=== PATIENT | female | born 1950 | race Two or more races ===

== ENCOUNTER → 2024-06-23 | Outpatient (CLI) | payer MEDICARE, MEDICAID, SELFPAY ==
[2024-06-23 09:56] LABS: Basophils # (Auto) 0.1 Thou/mm3 (0.0-0.2); Basophils % (Auto) 1 % (0-2.5); Eosinophils # (Auto) 0.2 Thou/mm3 (0.0-0.5); Eosinophils % (Auto) 2 % (0-10); Hematocrit 34.4 % (36.0-46.0); Hemoglobin 11.5 g/dL (12.0-16.0); Immature Granulocytes % (Auto) 5 % (0-0); Immature Granulocytes Auto 0.47 Thou/mm3 (0.00-0.00); Lymphocytes # (Auto) 0.6 Thou/mm3 (1.0-4.8); Lymphocytes % (Auto) 7 % (10-50); Mean Corpuscular HGB Conc 33.4 g/dl (31.0-37.0); Mean Corpuscular Hemoglobin 29.4 pg (25.0-35.0); Mean Corpuscular Volume 88 fL (80-100); Monocytes # (Auto) 0.8 Thou/mm3 (0.0-0.8); Monocytes % (Auto) 9 % (0-12); Neutrophils # (Auto) 7.1 Thou/mm3 (1.8-7.7); Neutrophils % (Auto) 77 % (37-80); Nucleated Red Blood Cell % 0 /100 WBC (0); Platelet Count 365 Thou/mm3 (140-440); RDW Standard Deviation 45.8 fL (36.4-46.3); Red Blood Count 3.91 Miln/mm3 (4.00-5.20); White Blood Count 9.2 Thou/mm3 (3.6-11.0)
[2024-06-23 10:23] LABS: Alanine Aminotransferase 19 U/L (10-49); Albumin, Serum 4.4 gm/dL (3.4-4.8); Albumin/Globulin Ratio 1.5 (1.2-2.2); Alkaline Phosphatase 85 U/L (46-116); Anion Gap 4 (7-16); Aspartate Amino Transferase 24 U/L (0-34); BUN/Creatinine Ratio 23 Ratio (12-20); Bilirubin,Total 0.3 mg/dL (0.3-1.2); Blood Urea Nitrogen 21 mg/dL (9-23); Calcium 9.1 mg/dL (8.3-10.6); Calcium (Corrected) 9.1 mg/dL (8.5-10.1); Carbon Dioxide 28.2 mMol/L (20.0-31.0); Chloride 100 mMol/L (98-107); Creatinine (Component) 0.9 mg/dL (0.6-1.3); Globulin 2.9 gm/dL (2.3-3.5); Glucose 104 mg/dL (74-106); Osmolality,Calculated 267 (275-295); Sodium 132 mMol/L (136-145); Total Protein 7.3 gm/dL (5.7-8.2); eGFR > 60 See Note
[2024-06-23 10:27] LABS: Folate > 24.00 ng/mL (>5.38); Vitamin B12 796 pg/mL (211-911)
[2024-06-23 10:48] LABS: Ferritin 144 ng/mL (7.3-270.7); Total Iron Binding Capacity 286 mcg/dL (250-425)
[2024-06-23 10:58] LABS: Iron 23 mcg/dL (50-170); Percent Iron Saturation 8 % (20-55); Unsaturated Iron Binding 263 (225-295)
== END | disposition home or self-care (01) ==
LOC: COPL 09:25 → SCTO 09:27
PROVIDERS: PCP Family Medicine; Referring Provider Nurse Practitioner Family; Visit Provider Nurse Practitioner Family
DX: C85.81 Other specified types of non-Hodgkin lymphoma, lymph nodes of head, face, and neck (principal)
CPT/HCPCS: 36415; 80053; 82607; 82728; 82746; 83540; 83550; 85025

== ENCOUNTER 2024-06-24 09:16 | Outpatient (RCR) | payer MEDICARE, MEDICAID, SELFPAY | END 2024-07-11 23:59 | disposition home or self-care (01) | LOC: SCTC 09:16 | PROVIDERS: PCP Family Medicine; Referring Provider Nurse Practitioner Family; Visit Provider Nurse Practitioner Family | DX: Z08 Encounter for follow-up examination after completed treatment for malignant neoplasm (principal); Z85.72 Personal history of non-Hodgkin lymphomas; Z86.2 Personal history of diseases of the blood and blood-forming organs and certain disorders involving the immune mechanism; I10 Essential (primary) hypertension; E87.1 Hypo-osmolality and hyponatremia | CPT/HCPCS: 99212; G0463 ==

== ENCOUNTER → 2024-08-21 | Outpatient (CLI) | payer MEDICARE, MEDICAID, SELFPAY ==
[2024-08-21 11:18] LABS: Basophils % (Auto) 1 % (0-2.5); Eosinophils # (Auto) 0.1 Thou/mm3 (0.0-0.5); Eosinophils % (Auto) 1 % (0-10); Hematocrit 34.2 % (36.0-46.0); Hemoglobin 11.2 g/dL (12.0-16.0); Immature Granulocytes % (Auto) 3 % (0-0); Immature Granulocytes Auto 0.17 Thou/mm3 (0.00-0.00); Immature Reticulocyte Fraction 13.6 % (3.0-15.9); Lymphocytes # (Auto) 0.5 Thou/mm3 (1.0-4.8); Lymphocytes % (Auto) 10 % (10-50); Mean Corpuscular HGB Conc 32.7 g/dl (31.0-37.0); Mean Corpuscular Hemoglobin 29.6 pg (25.0-35.0); Mean Corpuscular Volume 90 fL (80-100); Monocytes # (Auto) 0.6 Thou/mm3 (0.0-0.8); Monocytes % (Auto) 12 % (0-12); Neutrophils # (Auto) 3.9 Thou/mm3 (1.8-7.7); Neutrophils % (Auto) 73 % (37-80); Nucleated Red Blood Cell % 0 /100 WBC (0); Platelet Count 343 Thou/mm3 (140-440); RDW Standard Deviation 49.2 fL (36.4-46.3); Red Blood Count 3.79 Miln/mm3 (4.00-5.20); Reticulocyte % (Auto) 1.5 % (0.5-1.5); Reticulocyte Absolute Auto 57.6 Biln/L (25.0-75.0); Reticulocyte Hgb Content 34.2 pg (28.0-35.0); White Blood Count 5.4 Thou/mm3 (3.6-11.0)
[2024-08-21 11:34] LABS: Alanine Aminotransferase 15 U/L (10-49); Albumin, Serum 4.2 gm/dL (3.4-4.8); Albumin/Globulin Ratio 1.4 (1.2-2.2); Alkaline Phosphatase 78 U/L (46-116); Anion Gap 6 (7-16); Aspartate Amino Transferase 12 U/L (0-34); BUN/Creatinine Ratio 22 Ratio (12-20); Bilirubin,Total 0.3 mg/dL (0.3-1.2); Blood Urea Nitrogen 22 mg/dL (9-23); Calcium 9.2 mg/dL (8.3-10.6); Calcium (Corrected) 9.2 mg/dL (8.5-10.1); Carbon Dioxide 28.8 mMol/L (20.0-31.0); Chloride 101 mMol/L (98-107); Glucose 93 mg/dL (74-106); Osmolality,Calculated 275 (275-295); Potassium 4.3 mMol/L (3.4-5.1); Sodium 136 mMol/L (136-145); Total Protein 7.2 gm/dL (5.7-8.2); eGFR 58 See Note
[2024-08-21 11:35] LABS: Folate 21.54 ng/mL (>5.38); Vitamin B12 436 pg/mL (211-911)
[2024-08-21 12:01] LABS: Ferritin 114 ng/mL (7.3-270.7); Total Iron Binding Capacity 302 mcg/dL (250-425)
[2024-08-21 22:13] LABS: Iron 51 mcg/dL (50-170); Percent Iron Saturation 16 % (20-55); Unsaturated Iron Binding 251 (225-295)
== END | disposition home or self-care (01) ==
LOC: SCTO 10:15
PROVIDERS: PCP Family Medicine; Referring Provider Nurse Practitioner Family; Visit Provider Nurse Practitioner Family
DX: C85.81 Other specified types of non-Hodgkin lymphoma, lymph nodes of head, face, and neck (principal)
CPT/HCPCS: 36415; 80053; 82607; 82728; 82746; 83540; 83550; 85025; 85046

== ENCOUNTER 2024-08-24 10:50 | Outpatient (RCR) | payer MEDICARE, MEDICAID, SELFPAY ==
--- NOTE | 2024-08-24 16:09 | CTCFLWUP_ITS ---
Patient: YASMANY MERCADO : 1950 Page 2 of 2 FOLLOW UP NOTE DATE OF SERVICE: 08/24/2024 NAME: YASMANY MERCADO ACCOUNT: [id number] : 1950 AGE: 74 INTERVAL HISTORY: Patient is doing well. There is no new complaints. Patient do not take vitamin D or iron supplement . 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 Mercado is here at [facility]. She is clinically doing well. Ms. Mercado denies any complaints today. Has good appetite and good energy l evels. Labs on 06/23/2024 show hemoglobin 11.5, MCV 88, iron saturation 8%, ferritin 144. Patient r estarted oral ferrous sulfate one week ago, tolerating it well. Patient denies craving ice paint dirt . Patient denies nilsa blood in stool, denies blood per rectum, denies black stools. Patient reports good energy levels and appetite. Denies any cough, chest pain, abdominal pain or leg cramps, weight loss. HISTORY: Amaya Mercado is a 74-year-old Japanese-speaking female with history of left arteaga tid mass excision on 10/21/2014. Pathology specimen showed extranodal marginal zone lymphoma. 12/06/2014?12/31/2014: Patient received 3600 cGy radiation to left face/neck. 11/20/2019: Hemoglobin 10.7, MCV 87, WBC 6.4, platelets 379,000. Iron saturation 12%. 11/24/2019: Ferrous sulfate 325 mg p.o. twice daily with small glass of orange juice started. 01/08/2020: Hemoglobin 10.9, MCV 89, iron saturation 14%. Ferritin 78. 04/05/2020: Hemoglobin 11.7, MCV 87, WBC 3.8, ANC 2.8, platelets 325,000. Iron saturation 18%, ferrit in 196. B12 and folate are in the normal range. 10/03/2020: Hemoglobin 12.1, MCV 91, WBC 4.8, platelets 307,000, iron saturation 15%, ferritin 149. 01/20/2021: Colonoscopy 03/10/2023: EGD: Acute gastritis without bleeding 11/25/2023: Hemoglobin 11.8, MCV 90, WBC 6.0, platelets 314,000, iron saturation 19%, ferritin 100 06/23/2024: Hemoglobin 11.5, MCV 88, WBC 9.2, platelets 365,000, iron saturation 8%, ferritin 144 OTHER MEDICAL HISTORY/CONDITIONS: FAMILY HISTORY: SOCIAL HISTORY: GRINDER SET UP OPERATOR UNIVERSAL HISTORY: MEDICATIONS: 1. lisinopril - 40 mg 1 tab Daily Medications Last Reconciled by Ary Salas MA on 08/24/2024 ALLERGIES: No Known Drug Allergies REVIEW OF SYSTEMS: A complete 14-point review of systems was performed and is negative except as noted in interval histo ry. PHYSICAL EXAMINATION: VITAL SIGNS: PAIN: 0 - No pain ECOG Performance Status: 0 - Asymptomatic and fully active GENERAL APPEARANCE: Appears well, in no apparent distress, appropriately interactive. HEENT: Normocephalic, no temporal wasting, normal conjunctiva, no scleral icterus, normal hearing, li ps without lesions, neck normal range of motion. CARDIOVASCULAR: Not assessed. PULMONARY: Normal respiratory effort, no respiratory distress or use of accessory muscles, speaking i n full sentences, no tachypnea. EXTREMITIES: No pedal edema or cyanosis. SKIN: Normal skin appearance. NEUROLOGIC: Alert and oriented x4. PSHYCHIATRIC: Appropriate affect, mood normal, behavior normal, intact thought and speech. LABORATORY DATA: I have personally reviewed and interpreted each of the patient?s relevant lab tests, abnormal finding s are below: Date 08/21/24 ??WHITE?BLOOD?COUNT?(Thou/mm3) 5.4 ??RED?BLOOD?COUNT?(Miln/mm3) 3.79?L ??HEMOGLOBIN?(gm/dl) 11.2?L ??HEMATOCRIT?(%) 34.2?L ??PLATELET?COUNT?(Thou/mm3) 343 ??NEUTROPHILS?%,?AUTO?(%) 73 ??LYMPH?%,?AUTO?(%) 10 ??NEUTROPHILS,?AUTO?(Thou/mm3) 3.9 ASSESSMENT/PLAN: #1 marginal zone lymphoma stage I AE status post excision followed by radiation No clinical evidence of recurrence #2 iron deficiency anemia Transferrin percent is mildly low Advised to take oral ferrous sulfate 1 tablet every other day #3 vitamin D supplement Advised to take vitamin D3 every day with fatty food CBC CMP ferritin iron studies B12 folic acid RETURN TO CLINIC: 4 months BILLING AND COMPLIANCE: I reviewed external records from providers outside my specialty as summarized above. I spent a total of 50 minutes on this patient?s care on the day of their visit excluding time spent related to any bi lled procedures. This time includes time spent with the patient as well as time spent documenting in the medical record, reviewing patients records and tests, obtaining history, placing orders, communi cating with other healthcare professionals, counseling the patient, family or caregiver, and/or care coordination for the diagnoses above. Electronically Signed by: Tavo Varghese MD T: 4:07 PM CC: Chuckie?Eddi,? PCP: Nico Marin Referring: Nico Marin This document was completed utilizing speech recognition software. Grammatical errors, random word in sertions, pronoun errors, and incomplete sentences are an occasional consequence of this system due t o software limitations, ambient noise, and hardware issues. Any formal questions or concerns about th e content, text or information contained within the body of this dictation should be directly address ed to the provider for clarification.
== END 2024-09-11 23:59 | disposition home or self-care (01) ==
LOC: SCTC 10:50
PROVIDERS: PCP Family Medicine; Referring Provider Family Medicine; Visit Provider Nurse Practitioner Family
DX: Z08 Encounter for follow-up examination after completed treatment for malignant neoplasm (principal); Z85.72 Personal history of non-Hodgkin lymphomas; D50.9 Iron deficiency anemia, unspecified
CPT/HCPCS: 99213; G0463

== ENCOUNTER → 2024-12-18 | Outpatient (CLI) | payer MEDICARE, MEDICAID, SELFPAY ==
[2024-12-18 09:49] LABS: Basophils % (Auto) 0 % (0-2.5); Eosinophils # (Auto) 0.3 Thou/mm3 (0.0-0.5); Eosinophils % (Auto) 6 % (0-10); Hematocrit 32.8 % (36.0-46.0); Hemoglobin 11.1 g/dL (12.0-16.0); Immature Granulocytes % (Auto) 1 % (0-0); Immature Granulocytes Auto 0.06 Thou/mm3 (0.00-0.00); Lymphocytes # (Auto) 0.4 Thou/mm3 (1.0-4.8); Lymphocytes % (Auto) 9 % (10-50); Mean Corpuscular HGB Conc 33.8 g/dl (31.0-37.0); Mean Corpuscular Hemoglobin 30.1 pg (25.0-35.0); Mean Corpuscular Volume 89 fL (80-100); Monocytes # (Auto) 0.5 Thou/mm3 (0.0-0.8); Monocytes % (Auto) 12 % (0-12); Neutrophils # (Auto) 3.3 Thou/mm3 (1.8-7.7); Neutrophils % (Auto) 72 % (37-80); Nucleated Red Blood Cell % 0 /100 WBC (0); Platelet Count 313 Thou/mm3 (140-440); RDW Standard Deviation 45.2 fL (36.4-46.3); Red Blood Count 3.69 Miln/mm3 (4.00-5.20); White Blood Count 4.6 Thou/mm3 (3.6-11.0)
[2024-12-18 10:08] LABS: Folate 16.92 ng/mL (>5.38)
[2024-12-18 10:14] LABS: Alanine Aminotransferase 15 U/L (10-49); Albumin, Serum 4.2 gm/dL (3.4-4.8); Albumin/Globulin Ratio 1.4 (1.2-2.2); Alkaline Phosphatase 76 U/L (46-116); Anion Gap 6 (7-16); Aspartate Amino Transferase 25 U/L (0-34); BUN/Creatinine Ratio 18 Ratio (12-20); Bilirubin,Total 0.3 mg/dL (0.3-1.2); Blood Urea Nitrogen 18 mg/dL (9-23); Calcium 8.8 mg/dL (8.3-10.6); Calcium (Corrected) 8.8 mg/dL (8.5-10.1); Chloride 105 mMol/L (98-107); Globulin 3.1 gm/dL (2.3-3.5); Glucose 102 mg/dL (74-106); Osmolality,Calculated 277 (275-295); Potassium 4.1 mMol/L (3.4-5.1); Sodium 138 mMol/L (136-145); Total Protein 7.3 gm/dL (5.7-8.2); eGFR 58 See Note
[2024-12-18 10:18] LABS: Ferritin 84 ng/mL (7.3-270.7); Iron 44 mcg/dL (50-170); Percent Iron Saturation 15 % (20-55); Total Iron Binding Capacity 283 mcg/dL (250-425); Unsaturated Iron Binding 239 (225-295)
== END | disposition home or self-care (01) ==
LOC: SCTO 08:50
PROVIDERS: PCP Family Medicine; Referring Provider Internal Medicine Hematology & Oncology; Visit Provider Internal Medicine Hematology & Oncology
DX: C85.81 Other specified types of non-Hodgkin lymphoma, lymph nodes of head, face, and neck (principal)
CPT/HCPCS: 36415; 80053; 82728; 82746; 83540; 83550; 85025

== ENCOUNTER 2024-12-22 10:51 | Outpatient (RCR) | payer MEDICARE, MEDICAID, SELFPAY ==
--- NOTE | 2024-12-22 12:01 | CTCFLWUP_ITS ---
Patient: YASMANY MERCADO : 1950 Page 2 of 2 FOLLOW UP NOTE DATE OF SERVICE: 12/22/2024 NAME: YASMANY MERCADO ACCOUNT: [id number] : 1950 AGE: 74 INTERVAL HISTORY: Subjective: Chief Complaint Follow-up for marginal zone lymphoma History of Present Illness Ms. Jess Hernandez is a female patient with a history of marginal zone lymphoma, last seen in August. She presents for a follow-up visit with no new complaints. The patient reports no changes in her overall health status since her last visit. She denies experiencing any weight loss, appetite changes, night sweats, or swollen glands, which are potential symptoms of lymphoma recurrence. The patient has not been adherent to the recommended treatment plan, as she has not been taking the advised vitamin D supplements. Regarding her iron supplementation, the patient has also not been compliant with the recommendation to take iron supplements. She reports no recent colonoscopy or Pap smear. The patient does not mention any impact on her daily functioning or any recent stressors or life events. Medications and Supplements - Vitamin D - Not taking as advised - Caused insomnia when taken at night - Iron - Not taking as advised Review of Systems General: Negative for weight loss, appetite changes, night sweats. Hematological/Lymphatic: Negative for swollen glands. 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 Mercado is here at [facility]. She is clinically doing well. Ms. Mercado denies any complaints today. Has good appetite and good energy levels. Labs on 06/23/2024 show hemoglobin 11.5, MCV 88, iron saturation 8%, ferritin 144. Patient restarted oral ferrous sulfate one week ago, tolerating it well. Patient denies craving ice paint dirt. Patient denies nilsa blood in stool, denies blood per rectum, denies black stools. Patient reports good energy levels and appetite. Denies any cough, chest pain, abdominal pain or leg cramps, weight loss. HISTORY: Amaya Mercado is a 74-year-old Tajik-speaking female with history of left carotid mass excision on 10/21/2014. Pathology specimen showed extranodal marginal zone lymphoma. 12/06/2014?12/31/2014: Patient received 3600 cGy radiation to left face/neck. 11/20/2019: Hemoglobin 10.7, MCV 87, WBC 6.4, platelets 379,000. Iron saturation 12%. 11/24/2019: Ferrous sulfate 325 mg p.o. twice daily with small glass of orange juice started. 01/08/2020: Hemoglobin 10.9, MCV 89, iron saturation 14%. Ferritin 78. 04/05/2020: Hemoglobin 11.7, MCV 87, WBC 3.8, ANC 2.8, platelets 325,000. Iron saturation 18%, ferritin 196. B12 and folate are in the normal range. 10/03/2020: Hemoglobin 12.1, MCV 91, WBC 4.8, platelets 307,000, iron saturation 15%, ferritin 149. 01/20/2021: Colonoscopy 03/10/2023: EGD: Acute gastritis without bleeding 11/25/2023: Hemoglobin 11.8, MCV 90, WBC 6.0, platelets 314,000, iron saturation 19%, ferritin 100 06/23/2024: Hemoglobin 11.5, MCV 88, WBC 9.2, platelets 365,000, iron saturation 8%, ferritin 144 OTHER MEDICAL HISTORY/CONDITIONS: FAMILY HISTORY: SOCIAL HISTORY: COMMUNICATIONS PROFESSOR HISTORY: MEDICATIONS: 1. lisinopril - 40 mg 1 tab Daily Medications Last Reconciled by Ary Salas MA on 12/22/2024 ALLERGIES: No Known Drug Allergies REVIEW OF SYSTEMS: A complete 14-point review of systems was performed and is negative except as noted in interval history. PHYSICAL EXAMINATION: VITAL SIGNS: Temperature?99, B/P?166/90, Oxygen?Saturation?99% Weight?147?lbs PAIN: 0 - No pain ECOG Performance Status: 0 - Asymptomatic and fully active GENERAL APPEARANCE: Appears well, in no apparent distress, appropriately interactive. HEENT: Normocephalic, no temporal wasting, normal conjunctiva, no scleral icterus, normal hearing, lips without lesions, neck normal range of motion. CARDIOVASCULAR: Not assessed. PULMONARY: Normal respiratory effort, no respiratory distress or use of accessory muscles, speaking in full sentences, no tachypnea. EXTREMITIES: No pedal edema or cyanosis. SKIN: Normal skin appearance. NEUROLOGIC: Alert and oriented x4. PSHYCHIATRIC: Appropriate affect, mood normal, behavior normal, intact thought and speech. LABORATORY DATA: I have personally reviewed and interpreted each of the patient?s relevant lab tests, abnormal findings are below: Date 08/21/24 12/18/24 ??WHITE?BLOOD?COUNT?(Thou/mm3) 5.4 4.6 ??RED?BLOOD?COUNT?(Miln/mm3) 3.79?L 3.69?L ??HEMOGLOBIN?(gm/dl) 11.2?L 11.1?L ??HEMATOCRIT?(%) 34.2?L 32.8?L ??PLATELET?COUNT?(Thou/mm3) 343 313 ??NEUTROPHILS?%,?AUTO?(%) 73 72 ??LYMPH?%,?AUTO?(%) 10 9?L ??NEUTROPHILS,?AUTO?(Thou/mm3) 3.9 3.3 ??GLUCOSE,RANDOM?(mg/dL) ? 102 ??BLOOD?UREA?NITROGEN?(mg/dL) ? 18 ??CREATININE?(mg/dL) ? 1.00 ??SODIUM?(mmol/L) ? 138 ??POTASSIUM?(mmol/L) ? 4.1 ??CHLORIDE?(mmol/L) ? 105 ??CrCl?(CandG)?(ml/min) ? 50.04 ??AST/SGOT?(Unit/L) ? 25 ??ALT/SGPT?(Unit/L) ? 15 ??ALKALINE?PHOSPHATASE?(Unit/L) ? 76 ??BILIRUBIN,?TOTAL?(mg/dL) ? 0.3 ??PROTEIN?TOTAL?(gm/dl) ? 7.3 ??ALBUMIN,?SERUM?(gm/dl) ? 4.2 ??GLOBULIN?(gm/dl) ? 3.1 ??ALBUMIN/GLOBULIN?RATIO ? 1.4 ??CALCIUM,?SERUM?(mg/dL) ? 8.8 ??CALCIUM?SERUM?(CORRECTED)?(mg/dL) ? 8.8 ??TOTAL?IRON?BINDING?CAP?(S*)?(mcg/dL) ? 283 ??UNBOUND?IBC?(mcg/dL) ? 239 ASSESSMENT/PLAN: Assessment and Plan: Jess Hernandez, female patient with marginal zone lymphoma, last seen in August, presenting for follow-up with no new complaints. Marginal Zone Lymphoma Assessment: Patient with history of marginal zone lymphoma, last seen in August. No new complaints reported. No symptoms of lymphoma recurrence such as weight loss, appetite changes, night sweats, or swollen glands. Continued monitoring is necessary. Plan: - Follow-up appointment in 6 months - Monitor for symptoms of lymphoma recurrence (weight loss, appetite changes, night sweats, swollen glands) - Check hemoglobin in 6 months Vitamin D Deficiency Assessment: Patient has not been taking previously recommended vitamin D supplementation. This puts her at risk for bone weakness, especially post- chemotherapy, with potential for fractures and mobility issues. The importance of vitamin D supplementation, particularly for post-menopausal women, was emp hasized. Plan: - Start vitamin D3 supplementation daily with food - Patient education provided on importance of vitamin D for bone health - Alternatives such as gummy supplements suggested if needed Iron Deficiency Anemia Assessment: Current iron level is 15 and hemoglobin is 11, indicating iron deficiency anemia. Patient has not started taking previously recommended iron supplementation. The etiology of iron deficiency needs to be determined, with consideration of both gynecological and gastrointestinal causes. Plan: - Start iron supplementation every other day with juice or vitamin C - Referral to transfer table operator for evaluation of iron deficiency etiology - Recommend colonoscopy (last one was 5 years ago) - Recommend Pap smear (patient reports not having a recent one) ORDERS: Order # Description [id number] Comprehensive Metabolic Panel - 12 + CBC with Auto Diff [id number] Assay Of Haptoglobin Quant + Lactate Dehydrogenase (LDH) [id number] MD Follow Up 6 Month + [id number] Ferritin + Iron Panel + Reticulocyte Count + Vitamin B-12 + Folic Acid; Serum RETURN TO CLINIC: BILLING AND COMPLIANCE: I reviewed external records from providers outside my specialty as summarized above. I spent a total of 50 minutes on this patient?s care on the day of their visit excluding time spent related to any billed procedures. This time includes time spent with the patient as well as time spent documenting in the medical record, reviewing patients records and tests, obtaining history, placing orders, communicating with other healthcare professionals, counseling the patient, family or caregiver, and/or care coordination for the diagnoses above. Electronically Signed by: Tavo Varghese MD T: 11:59 AM CC: Chuckie?Eddi? PCP: Nico Marin Referring: Nico Marin This document was completed utilizing speech recognition software. Grammatical errors, random word insertions, pronoun errors, and incomplete sentences are an occasional consequence of this system due to software limitations, ambient noise, and hardware issues. Any formal questions or concerns about the content, text or information contained within the body of this dictation should be directly addressed to the provider for clarification.
== END 2025-01-09 23:59 | disposition home or self-care (01) ==
LOC: SCTC 10:51
PROVIDERS: PCP Family Medicine; Referring Provider Family Medicine; Visit Provider Internal Medicine Hematology & Oncology
DX: Z08 Encounter for follow-up examination after completed treatment for malignant neoplasm (principal); Z85.72 Personal history of non-Hodgkin lymphomas; E55.9 Vitamin D deficiency, unspecified; D50.9 Iron deficiency anemia, unspecified
CPT/HCPCS: 99213; G0463

== ENCOUNTER → 2025-01-11 | Outpatient (CLI) | payer MEDICARE, MEDICAID, SELFPAY ==
--- NOTE | 2025-01-11 | XR_ITS ---
Examination: Bone densitometry Date and time of exam:January 11, 2025 1358 hours INDICATIONS: Hysterectomy age and calcium 4 years, history postmenopausal foot fracture, personal history osteoporosis Technique: Lumbar spine and hip total bone mineralization values of an calculated. Peak reference and age match control results have been displayed. Findings: Lumbar spine total bone mineralization is0.690 gm/cm2. This is 3.2 standard deviations below peak reference. This is 0.7 standard deviations below age-matched controls. Hip total bone mineralization is 0.811 gm/cm2 This is 1.1 standard deviations below peak reference. This is 0.8 standard deviations above age-matched controls Impression: There is osteoporosis based on lumbar spine measurements. There is osteoporosis based on hip measurements Lumbar mineralization is decreased 3.2% compared with February 07, 2018 Hip mineralization is increase 6.5% compared with February 07, 2018
== END | disposition home or self-care (01) ==
LOC: CDIM 13:12
PROVIDERS: Referring Provider Internal Medicine Hematology & Oncology; Visit Provider Internal Medicine Hematology & Oncology
DX: M81.0 Age-related osteoporosis without current pathological fracture (principal); C85.81 Other specified types of non-Hodgkin lymphoma, lymph nodes of head, face, and neck
CPT/HCPCS: 77080

== ENCOUNTER → 2025-06-16 | Outpatient (CLI) | payer MEDICARE, MEDICAID, SELFPAY ==
--- NOTE | 2025-06-16 10:45 | XR_ITS ---
Examination: Screening digital mammography, bilateral Computer aided detection 3-D breast Tomosynthesis, bilateral Date and time of exam: 06/16/2025, 10:44 a.m. Comparisons: 02/14/2023 Indications: Screening Technique: Nonmagnified MLO, CC views of the breasts to been obtained, reconstructed from 3-D Tomosynthesis images. R2 computer aided detection program utilized for evaluation of suspicious masses and/or abnormal calcifications. 3-D Tomosynthesis images obtained. Technologist: Findings: The breasts are heterogeneously dense, which may obscure small masses. No evidence of abnormal masses or suspicious calcifications. Stable benign calcifications bilaterally. Impression: BI-RADS category 2: Benign findings Recommend 1 year follow-up mammogram
== END | disposition home or self-care (01) ==
LOC: CDIM 10:35
PROVIDERS: Referring Provider Family Medicine; Visit Provider Family Medicine
DX: Z12.31 Encounter for screening mammogram for malignant neoplasm of breast (principal); R92.323 Mammographic fibroglandular density, bilateral breasts
CPT/HCPCS: 77063; 77067

== ENCOUNTER → 2025-06-21 | Outpatient (CLI) | payer MEDICARE, MEDICAID, SELFPAY ==
[2025-06-21 10:49] LABS: Basophils # (Auto) 0.0 Thou/mm3 (0.0-0.2); Basophils % (Auto) 1 % (0-2.5); Eosinophils # (Auto) 0.1 Thou/mm3 (0.0-0.5); Eosinophils % (Auto) 1 % (0-10); Hematocrit 34.0 % (36.0-46.0); Hemoglobin 11.0 g/dL (12.0-16.0); Immature Granulocytes Auto 0.09 Thou/mm3 (0.00-0.00); Lymphocytes # (Auto) 0.6 Thou/mm3 (1.0-4.8); Lymphocytes % (Auto) 9 % (10-50); Mean Corpuscular HGB Conc 32.4 g/dl (31.0-37.0); Mean Corpuscular Hemoglobin 29.9 pg (25.0-35.0); Mean Corpuscular Volume 92 fL (80-100); Monocytes # (Auto) 0.7 Thou/mm3 (0.0-0.8); Monocytes % (Auto) 12 % (0-12); Neutrophils # (Auto) 4.7 Thou/mm3 (1.8-7.7); Neutrophils % (Auto) 76 % (37-80); Nucleated Red Blood Cell # 0.00 Thou/mm3 (0.00-0.00); Nucleated Red Blood Cell % 0 /100 WBC (0); Platelet Count 319 Thou/mm3 (140-440); RDW Standard Deviation 48.9 fL (36.4-46.3); Red Blood Count 3.68 Miln/mm3 (4.00-5.20); White Blood Count 6.2 Thou/mm3 (3.6-11.0)
[2025-06-21 11:25] LABS: Alanine Aminotransferase 15 U/L (10-49); Albumin, Serum 4.4 gm/dL (3.4-4.8); Albumin/Globulin Ratio 1.7 (1.2-2.2); Alkaline Phosphatase 70 U/L (46-116); Anion Gap 8 (7-16); Aspartate Amino Transferase 23 U/L (0-34); BUN/Creatinine Ratio 17 Ratio (12-20); Bilirubin,Total 0.2 mg/dL (0.3-1.2); Blood Urea Nitrogen 15 mg/dL (9-23); Calcium 9.0 mg/dL (8.3-10.6); Calcium (Corrected) 9.0 mg/dL (8.5-10.1); Carbon Dioxide 28.9 mMol/L (20.0-31.0); Chloride 104 mMol/L (98-107); Creatinine (Component) 0.9 mg/dL (0.6-1.3); Globulin 2.6 gm/dL (2.3-3.5); Glucose 98 mg/dL (74-106); LDH (Lactate Dehydrogenase) 192 U/L (120-246); Osmolality,Calculated 282 (275-295); Potassium 3.6 mMol/L (3.4-5.1); Sodium 141 mMol/L (136-145); Total Protein 7.0 gm/dL (5.7-8.2); eGFR > 60 See Note
[2025-06-28 07:04] LABS: Haptoglobin* 173 mg/dL (43-212)
== END | disposition home or self-care (01) ==
LOC: SCTO 09:20
PROVIDERS: PCP Family Medicine; Referring Provider Internal Medicine Hematology & Oncology; Visit Provider Internal Medicine Hematology & Oncology
DX: C85.81 Other specified types of non-Hodgkin lymphoma, lymph nodes of head, face, and neck (principal)
CPT/HCPCS: 36415; 80053; 83010; 83615; 85025

== ENCOUNTER 2025-06-24 09:51 | Outpatient (RCR) | payer MEDICARE, MEDICAID, SELFPAY | END 2025-07-11 23:59 | disposition home or self-care (01) | LOC: SCTC 09:51 | PROVIDERS: PCP Family Medicine; Referring Provider Nurse Practitioner Family; Visit Provider Nurse Practitioner Family | DX: Z08 Encounter for follow-up examination after completed treatment for malignant neoplasm (principal); Z85.72 Personal history of non-Hodgkin lymphomas; M81.0 Age-related osteoporosis without current pathological fracture; D50.9 Iron deficiency anemia, unspecified; E53.8 Deficiency of other specified B group vitamins | CPT/HCPCS: 99212; G0463 ==

== ENCOUNTER → 2025-07-22 | Outpatient (CLI) | payer MEDICARE, MEDICAID, SELFPAY ==
[2025-07-22 08:42] LABS: Basophils # (Auto) 0.0 Thou/mm3 (0.0-0.2); Basophils % (Auto) 1 % (0-2.5); Eosinophils # (Auto) 0.2 Thou/mm3 (0.0-0.5); Eosinophils % (Auto) 3 % (0-10); Hematocrit 34.1 % (36.0-46.0); Hemoglobin 11.2 g/dL (12.0-16.0); Immature Granulocytes Auto 0.07 Thou/mm3 (0.00-0.00); Lymphocytes # (Auto) 0.7 Thou/mm3 (1.0-4.8); Lymphocytes % (Auto) 14 % (10-50); Mean Corpuscular HGB Conc 32.8 g/dl (31.0-37.0); Mean Corpuscular Hemoglobin 30.7 pg (25.0-35.0); Mean Corpuscular Volume 93 fL (80-100); Monocytes # (Auto) 0.6 Thou/mm3 (0.0-0.8); Monocytes % (Auto) 11 % (0-12); Neutrophils # (Auto) 3.6 Thou/mm3 (1.8-7.7); Neutrophils % (Auto) 70 % (37-80); Nucleated Red Blood Cell # 0.00 Thou/mm3 (0.00-0.00); Nucleated Red Blood Cell % 0 /100 WBC (0); Platelet Count 299 Thou/mm3 (140-440); RDW Standard Deviation 50.4 fL (36.4-46.3); Red Blood Count 3.65 Miln/mm3 (4.00-5.20); White Blood Count 5.1 Thou/mm3 (3.6-11.0)
[2025-07-22 08:57] LABS: Collection Type, Urine Clean Catch
[2025-07-22 09:03] LABS: Alanine Aminotransferase 11 U/L (10-49); Albumin, Serum 4.2 gm/dL (3.4-4.8); Albumin/Globulin Ratio 1.3 (1.2-2.2); Alkaline Phosphatase 72 U/L (46-116); Anion Gap 12 (7-16); Aspartate Amino Transferase 22 U/L (0-34); BUN/Creatinine Ratio 18 Ratio (12-20); Bilirubin,Total 0.3 mg/dL (0.3-1.2); Blood Urea Nitrogen 18 mg/dL (9-23); Calcium 9.0 mg/dL (8.3-10.6); Calcium (Corrected) 9.0 mg/dL (8.5-10.1); Carbon Dioxide 26.0 mMol/L (20.0-31.0); Cardiac Risk Estimate 3.0 RATIO (3.7-5.6); Chloride 103 mMol/L (98-107); Cholesterol 149 mg/dL (132-200); Creatinine (Component) 1.0 mg/dL (0.6-1.3); Globulin 3.2 gm/dL (2.3-3.5); Glucose 106 mg/dL (74-106); HDL Cholesterol 49 mg/dL (40-60); LDL Cholesterol,Calculated 77 mg/dL (0-130); Osmolality,Calculated 283 (275-295); Potassium 3.8 mMol/L (3.4-5.1); Sodium 141 mMol/L (136-145); Thyroid Stimulating Hormone 1.47 uIU/mL (0.55-4.78); Total Protein 7.4 gm/dL (5.7-8.2); Triglycerides 113 mg/dL (30-150); eGFR 58 See Note
[2025-07-22 09:29] LABS: Bacteria,Urine Rare; Bilirubin,Urine Negative (Negative); Blood,Urine Negative (Negative); Clarity,Urine Clear (Clear/Hazy); Color,Urine Colorless (Lt Yel-Yel); Glucose, Urine Negative (Negative); Ketones,Urine Negative (Negative); Leukocyte Esterase,Urine Positive (Negative); Nitrite,Urine Negative (Negative); PH,Urine 7.0 (5.0-7.0); Protein,Urine Negative (Neg - Trace); RBC,Urine 2 /hpf (0-3); Specific Gravity,Urine 1.010 (1.001-1.035); Squamous Epithelial Cell,Urine 1 /hpf (0-5); Urobilinogen,Urine Negative mg/dL (0.0-1.0); WBC,Urine 4 /hpf (0-5)
== END | disposition home or self-care (01) ==
LOC: COPL 07:45
PROVIDERS: PCP Family Medicine; Referring Provider Family Medicine; Visit Provider Family Medicine
DX: Z00.00 Encounter for general adult medical examination without abnormal findings (principal); I10 Essential (primary) hypertension
CPT/HCPCS: 36415; 80053; 80061; 81001; 83036; 84443; 85025